=== PATIENT | female | born 1955 | race Caucasian/White ===

== ENCOUNTER 2016-10-09 08:18 | Outpatient (CLI) ==
[2016-10-09 13:38] LABS: BASOPHILS # (AUTO) 0.1 K/uL (0-0.2); BASOPHILS % (AUTO) 0.7 % (0.0-3.0); EOSINOPHILS # (AUTO) 0.4 K/ul (0.0-0.7); EOSINOPHILS % (AUTO) 3.4 % (0.0-7.0); HEMATOCRIT 37.1 % (37.0-47.0); IMMATURE GRANULOCYTE % (AUTO) 0.2 % (0.0-5.0); LYMPHOCYTES # (AUTO) 2.2 K/uL (0.60-3.4); LYMPHOCYTES % (AUTO) 21.2 (10.0-50.0); MEAN CORPUSCULAR HEMOGLOBIN 29.1 pg (27.0-31.0); MEAN CORPUSCULAR HGB CONC 32.3 (31.8-35.4); MEAN CORPUSCULAR VOLUME 89.8 fl (81.0-99.0); MONOCYTES # (AUTO) 0.7 K/uL (0.4-2.0); MONOCYTES % (AUTO) 6.8 (0-10); NEUTROPHILS # (AUTO) 6.9 K/ul (2.0-6.9); NEUTROPHILS % (AUTO) 67.7; PLATELET COUNT 263 10^3/uL (140-440); RED BLOOD COUNT 4.13 10^6/ul (4.20-5.40); WHITE BLOOD COUNT 10.17 K/ul (4.6-10.2)
== END 2016-10-09 08:19 | disposition home or self-care (01) ==
LOC: LAB 08:18
PROVIDERS: ATTEND General Practice
DX: D64.9 Anemia, unspecified (principal)
CPT/HCPCS: 36415; 85025

== ENCOUNTER 2017-02-11 12:49 | Outpatient (CLI) ==
--- NOTE | 2017-02-12 09:31 | MAMMO ---
EXAM: Bilateral digital screening mammogram History: Screening Comparison: Bilateral mammogram 02/14/2016 Findings: MLO and CC views of bilateral breasts demonstrate scattered fibroglandular breast parench yma. Stable benign bilateral vascular and scattered calcifications. There are no dominant masses, no suspicious microcalcifications and no architectural distortions Impression: Benign stable mammogram. Recommend followup routine screening mammography in 1 year. BIRADS 2
== END 2017-02-11 12:50 | disposition home or self-care (01) ==
LOC: RAD 12:49
PROVIDERS: ATTEND General Practice
DX: Z12.31 Encounter for screening mammogram for malignant neoplasm of breast (principal)

== ENCOUNTER 2017-02-12 11:40 | Outpatient (CLI) ==
[2017-02-12 12:04] LABS: BASOPHILS # (AUTO) 0.1 K/uL (0-0.2); BASOPHILS % (AUTO) 0.8 % (0.0-3.0); EOSINOPHILS # (AUTO) 0.3 K/ul (0.0-0.7); HEMATOCRIT 38.7 % (37.0-47.0); HEMOGLOBIN 13.1 g/dl (12.0-16.0); IMMATURE GRANULOCYTE % (AUTO) 0.2 % (0.0-5.0); LYMPHOCYTES # (AUTO) 2.7 K/uL (0.60-3.4); LYMPHOCYTES % (AUTO) 33.1 (10.0-50.0); MEAN CORPUSCULAR HEMOGLOBIN 29.5 pg (27.0-31.0); MEAN CORPUSCULAR HGB CONC 33.9 (31.8-35.4); MEAN CORPUSCULAR VOLUME 87.2 fl (81.0-99.0); MONOCYTES # (AUTO) 0.5 K/uL (0.4-2.0); MONOCYTES % (AUTO) 5.7 (0-10); NEUTROPHILS # (AUTO) 4.7 K/ul (2.0-6.9); NEUTROPHILS % (AUTO) 57.2; PLATELET COUNT 268 10^3/uL (140-440); RED BLOOD COUNT 4.44 10^6/ul (4.20-5.40); WHITE BLOOD COUNT 8.24 K/ul (4.6-10.2)
[2017-02-12 12:07] LABS: BILIRUBIN,URINE Negative (NEGATIVE); KETONES,URINE Negative (NEGATIVE); LEUKOCYTE ESTERASE ,URINE Trace (NEGATIVE); NITRITE,URINE Negative (NEGATIVE); PROTEIN,URINE Negative (NEGATIVE); URINE, BLOOD Trace-intact (NEGATIVE)
[2017-02-12 12:12] LABS: ADD URINE MICROSCOPIC YES
[2017-02-12 12:21] LABS: ALBUMIN/GLOBULIN RATIO 1.21; ANION GAP 12.9; BILIRUBIN,TOTAL 0.29 mg/dL (0.00-1.20); BUN/CREATININE RATIO 18.75; CALCIUM 9.2 mg/dL (8.2-10.2); CHOL/HDL RATIO 4.9 (4.5-5.5); CREATININE 0.64 mg/dL (0.60-1.30); POTASSIUM 3.9 mmol/L (3.5-5.10); TOTAL PROTEIN 7.3 g/dL (5.8-8.1)
== END 2017-02-12 11:41 | disposition home or self-care (01) ==
LOC: LAB 11:40
PROVIDERS: ATTEND General Practice
DX: Z00.00 Encounter for general adult medical examination without abnormal findings (principal); I25.10 Atherosclerotic heart disease of native coronary artery without angina pectoris; D64.9 Anemia, unspecified; R30.0 Dysuria; Z79.899 Other long term (current) drug therapy
CPT/HCPCS: 36415; 80053; 80061; 81001; 85025

== ENCOUNTER 2017-02-14 11:54 | Outpatient (CLI) ==
[2017-02-14 16:37] LABS: OCCULT BLOOD INTERNAL QC 1 INTERNAL QC VALID; OCCULT BLOOD SAMPLE 1 NEGATIVE (NEGATIVE)
[2017-02-15 06:53] LABS: OCCULT BLOOD INTERNAL QC 2 INTERNAL QC VALID; OCCULT BLOOD INTERNAL QC 3 INTERNAL QC VALID; OCCULT BLOOD SAMPLE 2 NO SPECIMEN RECEIVED (NEGATIVE); OCCULT BLOOD SAMPLE 3 NO SPECIMEN RECEIVED (NEGATIVE)
== END 2017-02-14 11:55 ==
LOC: LAB 11:54
PROVIDERS: ATTEND General Practice
DX: Z00.00 Encounter for general adult medical examination without abnormal findings (principal); I25.10 Atherosclerotic heart disease of native coronary artery without angina pectoris; D64.9 Anemia, unspecified; R30.0 Dysuria; Z79.899 Other long term (current) drug therapy
CPT/HCPCS: 82272

== ENCOUNTER 2017-02-19 11:48 | Outpatient (CLI) ==
[2017-02-19 13:28] LABS: BILIRUBIN,URINE Negative (NEGATIVE); KETONES,URINE Negative (NEGATIVE); LEUKOCYTE ESTERASE ,URINE Trace (NEGATIVE); NITRITE,URINE Negative (NEGATIVE); PROTEIN,URINE Negative (NEGATIVE); URINE, BLOOD Trace-intact (NEGATIVE)
[2017-02-19 13:38] LABS: ADD URINE MICROSCOPIC YES
== END 2017-02-19 11:49 | disposition home or self-care (01) ==
LOC: LAB 11:48
PROVIDERS: ATTEND General Practice
DX: R31.29 Other microscopic hematuria (principal)
CPT/HCPCS: 81001

== ENCOUNTER 2017-06-12 13:50 | Outpatient (CLI) ==
[2017-06-12 14:31] LABS: BASOPHILS # (AUTO) 0.1 K/uL (0-0.2); BASOPHILS % (AUTO) 0.9 % (0.0-3.0); EOSINOPHILS # (AUTO) 0.2 K/ul (0.0-0.7); EOSINOPHILS % (AUTO) 2.9 % (0.0-7.0); HEMATOCRIT 38.5 % (37.0-47.0); IMMATURE GRANULOCYTE % (AUTO) 0.3 % (0.0-5.0); LYMPHOCYTES # (AUTO) 2.2 K/uL (0.60-3.4); LYMPHOCYTES % (AUTO) 29.7 (10.0-50.0); MEAN CORPUSCULAR HEMOGLOBIN 29.9 pg (27.0-31.0); MEAN CORPUSCULAR HGB CONC 33.8 (31.8-35.4); MEAN CORPUSCULAR VOLUME 88.5 fl (81.0-99.0); MONOCYTES # (AUTO) 0.5 K/uL (0.4-2.0); MONOCYTES % (AUTO) 6.4 (0-10); NEUTROPHILS # (AUTO) 4.5 K/ul (2.0-6.9); NEUTROPHILS % (AUTO) 59.8; PLATELET COUNT 266 10^3/uL (140-440); RED BLOOD COUNT 4.35 10^6/ul (4.20-5.40); WHITE BLOOD COUNT 7.54 K/ul (4.6-10.2)
[2017-06-12 14:37] LABS: BILIRUBIN,URINE Negative (NEGATIVE); KETONES,URINE Negative (NEGATIVE); LEUKOCYTE ESTERASE ,URINE 1+ (NEGATIVE); NITRITE,URINE Negative (NEGATIVE); PROTEIN,URINE Negative (NEGATIVE); URINE, BLOOD Trace-lysed (NEGATIVE)
[2017-06-12 14:38] LABS: ADD URINE MICROSCOPIC YES
[2017-06-12 14:51] LABS: ALBUMIN 3.8 g/dL (3.4-5.0); ALBUMIN/GLOBULIN RATIO 1.23; BILIRUBIN,TOTAL 0.34 mg/dL (0.00-1.20); BUN/CREATININE RATIO 18.46; CALCIUM 9.2 mg/dL (8.2-10.2); CHOL/HDL RATIO 5.2 (4.5-5.5); CREATININE 0.65 mg/dL (0.60-1.30); TOTAL PROTEIN 6.9 g/dL (5.8-8.1)
== END 2017-06-12 13:51 | disposition home or self-care (01) ==
LOC: LAB 13:50
PROVIDERS: ATTEND General Practice
DX: D64.9 Anemia, unspecified (principal); G62.9 Polyneuropathy, unspecified; I25.10 Atherosclerotic heart disease of native coronary artery without angina pectoris; I73.9 Peripheral vascular disease, unspecified; M51.9 Unspecified thoracic, thoracolumbar and lumbosacral intervertebral disc disorder; Z79.899 Other long term (current) drug therapy
CPT/HCPCS: 36415; 80053; 80061; 81001; 85025

== ENCOUNTER 2017-10-09 12:51 | Outpatient (CLI) | END 2017-10-09 12:52 | disposition home or self-care (01) | LOC: LAB 12:51 | PROVIDERS: ATTEND General Practice | DX: I25.10 Atherosclerotic heart disease of native coronary artery without angina pectoris (principal); I73.9 Peripheral vascular disease, unspecified; R31.29 Other microscopic hematuria; Z79.899 Other long term (current) drug therapy; Z87.891 Personal history of nicotine dependence | CPT/HCPCS: 36415; 80053; 80061; 81001; 85025 ==

== ENCOUNTER 2017-11-28 10:32 | Outpatient (CLI) | END 2017-11-28 10:33 | disposition home or self-care (01) | LOC: FCC-LAB 10:32 | PROVIDERS: ATTEND General Practice | DX: B35.1 Tinea unguium (principal); I25.10 Atherosclerotic heart disease of native coronary artery without angina pectoris; D64.9 Anemia, unspecified; R31.29 Other microscopic hematuria; Z79.899 Other long term (current) drug therapy | CPT/HCPCS: 36415; 80053; 80061; 81001; 82248; 85025 ==

== ENCOUNTER 2018-02-13 11:59 | Outpatient (CLI) | END 2018-02-13 12:00 | disposition home or self-care (01) | LOC: RHC-LAB 11:59 | PROVIDERS: ATTEND General Practice | DX: I25.10 Atherosclerotic heart disease of native coronary artery without angina pectoris (principal); D64.9 Anemia, unspecified; I73.9 Peripheral vascular disease, unspecified; G62.9 Polyneuropathy, unspecified; R31.29 Other microscopic hematuria; H40.9 Unspecified glaucoma; Z79.899 Other long term (current) drug therapy; Z87.891 Personal history of nicotine dependence | CPT/HCPCS: 36415; 80053; 80061; 81001; 85025 ==

== ENCOUNTER 2018-02-17 15:08 | Outpatient (CLI) | END 2018-02-17 15:09 | disposition home or self-care (01) | LOC: FCC-LAB 15:08 | PROVIDERS: ATTEND General Practice | DX: M25.512 Pain in left shoulder (principal); Z12.12 Encounter for screening for malignant neoplasm of rectum; M54.6 Pain in thoracic spine | CPT/HCPCS: 82272 ==